=== PATIENT | female | born 1960 | race Caucasian/White ===

== ENCOUNTER → 2017-02-06 | Outpatient (CLI) | payer BC | END | disposition home or self-care (01) | LOC: C.PAPS 16:28 | PROVIDERS: ATTEND Obstetrics & Gynecology | DX: Z01.419 Encounter for gynecological examination (general) (routine) without abnormal findings (principal) ==

== ENCOUNTER → 2017-02-06 | Outpatient (CLI) | payer BC ==
--- NOTE | 2017-02-06 14:29 | MAMMOGRAPHY REPORT ---
BILATERAL DIGITAL SCREENING MAMMOGRAM TOMOSYNTHESIS WITH CAD: 02/06/2017 CLINICAL HISTORY: Routine screening. TECHNIQUE: Breast tomosynthesis in addition to standard 2D mammography was performed. Current study was also evaluated with a Computer Aided Detection (CAD) system. COMPARISON: Comparison is made to exams dated: 01/07/2016 mammogram, 12/18/2013 mammogram, 12/19/2014 ma mmogram, 12/12/2012 mammogram, 12/12/2011 mammogram, and 09/02/2009 mammogram - [facility]. BREAST COMPOSITION: There are scattered areas of fibroglandular density in both breasts. Mild invol utional changes compared to more remote mammograms. FINDINGS: No suspicious mass, architectural distortion or cluster of suspicious microcalcifications is seen. IMPRESSION: ACR BI-RADS CATEGORY 1: NEGATIVE There is no mammographic evidence of malignancy. A 1 year screening mammogram is recommended. The pa tient will receive written notification of the results. Approximately 10% of breast cancers are not detected with mammography. A negative mammographic report should not delay biopsy if a clinically suggestive mass is present. Zainab Hunter M.D. ay/:02/06/2017 08:14:53 Log Inspector: Gavino STEINER(R)(M), [facility] letter sent: Normal 1/2 BI-RADS Code: ACR BI-RADS Category 1: Negative
== END | disposition home or self-care (01) ==
LOC: C.MAMM 07:07
PROVIDERS: ATTEND Obstetrics & Gynecology
DX: Z12.31 Encounter for screening mammogram for malignant neoplasm of breast (principal)

== ENCOUNTER → 2017-09-28 | Outpatient (CLI) | payer OTHER, BC | END | disposition home or self-care (01) | LOC: C.PATHSPEC 17:50 | PROVIDERS: ATTEND Plastic Surgery | DX: D17.24 Benign lipomatous neoplasm of skin and subcutaneous tissue of left leg (principal) ==